=== PATIENT | male | born 1930 | race Caucasian/White ===

== ENCOUNTER 2019-08-25 19:59 | Inpatient (IN) | payer OTHER ==
[~2019-08-25] VITALS: Ht 157.5 cm; Wt 75.1 kg
[~2019-08-25 19:59] MED LIST: HYDR-3237 PO; None per pt.; TAMS0.4C2 PO
--- NOTE | 2019-08-25 20:26 | NUR ---
report from alistair rasmussen. Pt was unresponsive at home. [facility] called and pt responded to painful stimuli. Pt [id number] upon arrivval. pt very hard of hearing but is answering appropriately. 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 vss. family at bedside. call light in reach
[2019-08-25] MEDS ORDERED: SODIUM CHLORIDE FLUSH 10ML SYR IVF ONE ×2 (20:30→21:00)
[2019-08-25 20:48] LABS: BASOPHILS # (AUTO) 0.03 x10^3/uL (0-0.1); BASOPHILS % (AUTO) 0 % (0-1); EOSINOPHILS # (AUTO) 0.05 x10^3/uL (0-0.4); EOSINOPHILS % (AUTO) 1 % (1-7); LYMPHOCYTES # (AUTO) 2.39 x10^3/uL (1-3.4); LYMPHOCYTES % (AUTO) 29 % (22-44); MD NO; MEAN CORPUSCULAR HGB CONC 33.2 g/dL (33.2-36.2); MEAN CORPUSCULAR VOLUME 99.3 fL (81-97); MEAN PLATELET VOLUME 6.9 fL (7.4-10.4); MONOCYTES # (AUTO) 0.79 x10^3/uL (0.2-0.8); MONOCYTES % (AUTO) 10 % (2-9); NEUTROPHILS # (AUTO) 4.89 x10^3/uL (1.8-6.8); NEUTROPHILS % (AUTO) 60 % (42-75); PLATELET COUNT 244 x10^3/uL (130-400); RED BLOOD COUNT 4.84 x10^6/uL (4.38-5.82); RED CELL DISTRIBUTION WIDTH 13.5 % (9.4-14.8)
[2019-08-25 20:55] LABS: INTERNATIONAL NORMALIZED RATIO 1.05 (0.93-1.1)
[2019-08-25 20:57] LABS: ALANINE AMINOTRANSFERASE 20 U/L (12-78); ALBUMIN 3.4 g/dL (3.4-5.0); ANION GAP 5 mmol/L (5-15); CALCIUM 8.7 mg/dL (8.5-10.1); CHLORIDE 107 mmol/L (98-107); CREATININE 1.12 mg/dL (0.7-1.3)
[2019-08-25] MEDS ORDERED: ASCO-90 PO (20:59)
[2019-08-25] MEDS ORDERED: CETI10CA PO (20:59)
[2019-08-25] MEDS ORDERED: FINA5TAB4 PO (20:59)
[2019-08-25] MEDS ORDERED: VIT1TABL46 PO (20:59)
[2019-08-25] MEDS ORDERED: CHOL100014 PO (20:59)
--- NOTE | 2019-08-25 20:59 | NUR ---
UA COLLECTED AND SENT TO LAB. LAB AT BEDSIDE. PT RESTING WITH NO NEEDS AT THIS TIME. CALL LIGHT IN REACH
[2019-08-25] MEDS ORDERED: AZITHROMYCIN 500 MG in SODIUM CHLORIDE 0.9% 250 ML IV ONE (21:00)
[2019-08-25] MEDS ORDERED: CEFTRIAXONE PMX 1GM/50ML 50 ML IVPB ONE (21:00)
[2019-08-25 21:01] LABS: ALKALINE PHOSPHATASE 108 U/L (45-117); BILIRUBIN,TOTAL 0.7 mg/dL (0.2-1.0); TOTAL PROTEIN 7.5 g/dL (6.4-8.2); TROPONIN I < 0.015 ng/mL (0.000-0.045)
[2019-08-25 21:06] LABS: MICROSCOPIC AUTO
[2019-08-25] MEDS ORDERED: CEFTRIAXONE PMX 1GM/50ML 50 ML ONE (21:10)
[2019-08-25 21:11] LABS: CULTURE INDICATED? NO
--- NOTE | 2019-08-25 21:16 | NUR ---
BLOOD CULTURES DRAWN. ABX STARTED. PT TO CT
--- NOTE | 2019-08-25 22:04 | NUR ---
PT WITH NON CONTRACTED INSURANCE. HAVE CALLED [facility] AND SPOKE WITH KEMI SOLANO, STATED WILL NOT TAKE PT. CALLED [facility] AND [facility], WHO STATED THEY WILL NOT ACCEPT PT EITHER.
--- NOTE | 2019-08-25 22:13 | NUR ---
2ND ABX RUNNING. VSS. FAMILY AT BEDSIDE. CALL LIGHT IN REACH
--- NOTE | 2019-08-25 23:01 | NUR ---
PT ASSISTED WITH URINAL. FAMILY AT BEDSIDE. PT AND FAMILY UPDATED ON POC. CALL LIGHT IN REACH
--- NOTE | 2019-08-25 23:26 | NUR ---
ABX FINISHED. PIV FLUSHED AND WORKS WELL. PT TO BE TRANSPORTED TO FLOOR
[2019-08-25] MEDS ORDERED: BISACODYL 10 MG SUPP PR PRN (23:30)
[2019-08-25] MEDS ORDERED: ACETAMINOPHEN 325 MG TABLET PO PRN (23:30)
[2019-08-25] MEDS ORDERED: ONDANSETRON 2MG/ML, 2ML IVPush PRN (23:30)
[2019-08-25] MEDS: CEFTRIAXONE PMX 1GM/50ML 50 ML IV SCH (23:30)
[2019-08-25] MEDS: AZITHROMYCIN 500 MG in SODIUM CHLORIDE 0.9% 250 ML IV SCH (23:30)
[2019-08-25] MEDS ORDERED: POLYETHYLENE GLYCOL 17 GM PACKET PO PRN (23:30)
[2019-08-25 23:44] VITALS: BP 120/83
[2019-08-26 01:26] VITALS: BP 104/65
[2019-08-26 06:28] LABS: BASOPHILS # (AUTO) 0.02 x10^3/uL (0-0.1); BASOPHILS % (AUTO) 0 % (0-1); EOSINOPHILS # (AUTO) 0.07 x10^3/uL (0-0.4); EOSINOPHILS % (AUTO) 1 % (1-7); LYMPHOCYTES # (AUTO) 1.85 x10^3/uL (1-3.4); LYMPHOCYTES % (AUTO) 24 % (22-44); MD NO; MEAN CORPUSCULAR HEMOGLOBIN 32.9 pg (27.5-34.5); MEAN CORPUSCULAR VOLUME 99.8 fL (81-97); MEAN PLATELET VOLUME 6.8 fL (7.4-10.4); MONOCYTES # (AUTO) 0.74 x10^3/uL (0.2-0.8); MONOCYTES % (AUTO) 10 % (2-9); NEUTROPHILS # (AUTO) 4.95 x10^3/uL (1.8-6.8); NEUTROPHILS % (AUTO) 65 % (42-75); PLATELET COUNT 208 x10^3/uL (130-400); RED BLOOD COUNT 4.57 x10^6/uL (4.38-5.82); RED CELL DISTRIBUTION WIDTH 13.8 % (9.4-14.8)
[2019-08-26 06:41] LABS: ANION GAP 4 mmol/L (5-15); CALCIUM 8.4 mg/dL (8.5-10.1); CHLORIDE 110 mmol/L (98-107)
[2019-08-26 06:48] LABS: ALANINE AMINOTRANSFERASE 16 U/L (12-78); ALKALINE PHOSPHATASE 94 U/L (45-117); BILIRUBIN,TOTAL 0.7 mg/dL (0.2-1.0); CREATININE 1.03 mg/dL (0.7-1.3); TOTAL PROTEIN 6.5 g/dL (6.4-8.2); TROPONIN I < 0.015 ng/mL (0.000-0.045)
[2019-08-26 07:25] VITALS: BP 119/86
[2019-08-26] MEDS: ASCORBIC ACID 500 MG TABLET PO SCH (08:08)
[2019-08-26] MEDS: TAMSULOSIN 0.4 MG CAP.ER.24H PO SCH (08:08)
[2019-08-26] MEDS: CETIRIZINE 10 MG TABLET PO SCH (08:08)
[2019-08-26] MEDS: CHOLECALCIFEROL 1,000 UNIT TABLET PO SCH (08:08)
[2019-08-26] MEDS: MULTIVITAMINS WITH IRON TABLET PO SCH (08:08)
[2019-08-26] MEDS: SENNA/DOCUSATE TABLET PO SCH (08:08)
[2019-08-26] MEDS: SODIUM CHLORIDE FLUSH 10ML SYR IVF SCH ×2 (08:09→21:11)
[2019-08-26 09:15] LABS: FREE T4 (FREE THYROXINE) 1.12 ng/dL (0.76-1.46)
[2019-08-26] MEDS: FINASTERIDE 5 MG TABLET PO SCH (10:49)
[2019-08-26 11:48] LABS: TROPONIN I < 0.015 ng/mL (0.000-0.045)
[2019-08-26 14:05] VITALS: BP 124/83
--- NOTE | 2019-08-26 18:52 | NUR ---
REC CONT CHOPPED/THIN; swallow precautions sheet posted at bedside Addendum: 08/26/19 at [address] Amended: Links added.
[2019-08-26 19:09] VITALS: BP 122/75
[2019-08-26] MEDS: CEFTRIAXONE PMX 1GM/50ML 50 ML IV SCH (21:10)
[2019-08-26] MEDS: AZITHROMYCIN 500 MG in SODIUM CHLORIDE 0.9% 250 ML IV SCH (22:35)
[2019-08-27 01:04] VITALS: BP 126/81
[2019-08-27 07:50] VITALS: BP 114/77
[2019-08-27] MEDS: ASCORBIC ACID 500 MG TABLET PO SCH (11:13)
[2019-08-27] MEDS: TAMSULOSIN 0.4 MG CAP.ER.24H PO SCH (11:13)
[2019-08-27] MEDS: MULTIVITAMINS WITH IRON TABLET PO SCH (11:13)
[2019-08-27] MEDS: CETIRIZINE 10 MG TABLET PO SCH (11:13)
[2019-08-27] MEDS: SENNA/DOCUSATE TABLET PO SCH (11:14)
[2019-08-27] MEDS: CHOLECALCIFEROL 1,000 UNIT TABLET PO SCH (11:14)
[2019-08-27] MEDS: SODIUM CHLORIDE FLUSH 10ML SYR IVF SCH ×2 (11:15→20:57)
[2019-08-27] MEDS: GUAIFENESIN 200 MG TABLET PO SCH ×3 (11:48→20:57)
[2019-08-27] MEDS: FINASTERIDE 5 MG TABLET PO SCH (11:48)
[2019-08-27] MEDS ORDERED: OMNIPAQUE 350 MG/ML, 100ML BOTTLE ONE (12:52)
[2019-08-27 14:05] VITALS: BP 124/60
[2019-08-27 19:08] VITALS: BP 142/92
[2019-08-27] MEDS: CEFTRIAXONE PMX 1GM/50ML 50 ML IV SCH (20:56)
[2019-08-27] MEDS: AZITHROMYCIN 500 MG in SODIUM CHLORIDE 0.9% 250 ML IV SCH (22:25)
[2019-08-28 00:46] VITALS: BP 133/82
[2019-08-28 05:33] LABS: BASOPHILS # (AUTO) 0.02 x10^3/uL (0-0.1); BASOPHILS % (AUTO) 0 % (0-1); EOSINOPHILS # (AUTO) 0.09 x10^3/uL (0-0.4); EOSINOPHILS % (AUTO) 1 % (1-7); LYMPHOCYTES # (AUTO) 2.19 x10^3/uL (1-3.4); LYMPHOCYTES % (AUTO) 24 % (22-44); MD NO; MEAN CORPUSCULAR HEMOGLOBIN 32.6 pg (27.5-34.5); MEAN CORPUSCULAR HGB CONC 32.6 g/dL (33.2-36.2); MEAN PLATELET VOLUME 7.1 fL (7.4-10.4); MONOCYTES % (AUTO) 9 % (2-9); NEUTROPHILS # (AUTO) 5.87 x10^3/uL (1.8-6.8); NEUTROPHILS % (AUTO) 66 % (42-75); PLATELET COUNT 230 x10^3/uL (130-400); RED BLOOD COUNT 4.51 x10^6/uL (4.38-5.82); RED CELL DISTRIBUTION WIDTH 13.7 % (9.4-14.8)
[2019-08-28 05:39] LABS: ANION GAP 5 mmol/L (5-15); CALCIUM 8.7 mg/dL (8.5-10.1); CHLORIDE 109 mmol/L (98-107); CREATININE 1.03 mg/dL (0.7-1.3)
[2019-08-28] MEDS: GUAIFENESIN 200 MG TABLET PO SCH ×2 (05:57→11:13)
[2019-08-28] MEDS ORDERED: CEFD300C37 PO (07:19)
[2019-08-28] MEDS ORDERED: DOXY100C2 PO (07:19)
[2019-08-28] MEDS ORDERED: GUAI200T37 PO (07:19)
[2019-08-28] MEDS ORDERED: CEFTRIAXONE PMX 1GM/50ML 50 ML IV SCH (07:30)
[2019-08-28] MEDS ORDERED: AZITHROMYCIN 500 MG in SODIUM CHLORIDE 0.9% 250 ML IV SCH (07:30)
[2019-08-28 07:40] VITALS: BP 108/68
[2019-08-28] MEDS: TAMSULOSIN 0.4 MG CAP.ER.24H PO SCH (07:44)
[2019-08-28] MEDS: CETIRIZINE 10 MG TABLET PO SCH (07:44)
[2019-08-28] MEDS: ASCORBIC ACID 500 MG TABLET PO SCH (07:44)
[2019-08-28] MEDS: SENNA/DOCUSATE TABLET PO SCH (07:44)
[2019-08-28] MEDS: CHOLECALCIFEROL 1,000 UNIT TABLET PO SCH (07:45)
[2019-08-28] MEDS: FINASTERIDE 5 MG TABLET PO SCH (07:45)
[2019-08-28] MEDS: MULTIVITAMINS WITH IRON TABLET PO SCH (07:45)
[2019-08-28] MEDS: SODIUM CHLORIDE FLUSH 10ML SYR IVF SCH (07:46)
[2019-08-28 13:14] VITALS: BP 138/85
== END 2019-08-28 13:45 | disposition home health service (06) | DRG 193 ==
LOC: ED 21:00 → EDIP 22:39 → 4EST 23:34 → DCLOUNGE 08-28 13:31
PROVIDERS: ADMIT Internal Medicine; ATTEND Hospitalist
DX: J18.1 Lobar pneumonia, unspecified organism (principal); G93.41 Metabolic encephalopathy; G91.2 (Idiopathic) normal pressure hydrocephalus; D75.89 Other specified diseases of blood and blood-forming organs; N40.0 Benign prostatic hyperplasia without lower urinary tract symptoms; F03.90 Unspecified dementia, unspecified severity, without behavioral disturbance, psychotic disturbance, mood disturbance, and anxiety; Z88.8 Allergy status to other drugs, medicaments and biological substances; H91.90 Unspecified hearing loss, unspecified ear; Z98.2 Presence of cerebrospinal fluid drainage device
CPT/HCPCS: 36415; 70450; 71045; 71275; 80048; 80053; 81001; 82607; 83605; 84145; 84439; 84443; 84484; 85025; 85379; 85610; 85730; 87040; 87070; 87205; 93005; 95812; 96365; 96367; 99285; G0378; J0456; J0696; Q9967; J7050